=== PATIENT | female | born 1975 | race Caucasian/White ===

== ENCOUNTER 2019-06-09 06:12 | Emergency (ER) | payer OTHER ==
[~2019-06-09] VITALS: Ht 160 cm; Wt 88.6 kg
[2019-06-09 06:17] VITALS: BP 152/89
== END 2019-06-09 07:34 | disposition home or self-care (01) ==
LOC: ED 06:12
DX: H16.002 Unspecified corneal ulcer, left eye (principal)

== ENCOUNTER 2020-05-06 04:26 | Inpatient (IN) | payer OTHER, SELFPAY ==
[~2020-05-06] VITALS: Ht 162.6 cm; Wt 86.2 kg
[2020-05-06 04:28] VITALS: Ht 162.6 cm; Wt 86.2 kg
--- NOTE | 2020-05-06 06:00 | NUR ---
PT SOB X4 DAYS AGO, TESTED COVID + 04/28/20. PT AFEBRILE, DENIES ANY PAIN OR OTHER COVID SYMPTOMS. LUNG SOUND CLEAR IN UPPER LOBES AND DIMINISHED IN EDWIGE. BASES ON AUSCULTATION. PT REPORTS DRY COUGH X4 DAYS. PT SATTING 90% ON RA, NAD NOTED ATT. PT A0X4, CURRENTLY ON GURNEY, SIDERAILS X2, CALL LIGHT WITHIN REACH. WILL CONTINUE TO MONITOR.
--- NOTE | 2020-05-06 06:15 | NUR ---
LAB DRAW COMPLETED AND SENT TO LAB
--- NOTE | 2020-05-06 07:19 | NUR ---
RECEIVED REPORT FROM NEDRA OLIVER WILL RESUME CARE OF PT
[2020-05-06 07:23] LABS: BASOPHIL % 0.5 % (0.2-1.3)
[2020-05-06 07:41] LABS: ALBUMIN 3.2 g/dL (3.4-5.0); ALKALINE PHOSPHATASE 104 U/L (46-116); ALT/SGPT 44 U/L (14-59); AST/SGOT 19 U/L (15-37); C REACTIVE PROTEIN 8.7 mg/dL (<=0.9); CALCIUM 9.2 mg/dL (8.5-10.1); CARBON DIOXIDE 26.6 mmol/L (21-32); CHLORIDE SERUM 96 mmol/L (98-107); CREATININE SERUM 0.7 mg/dL (0.6-1.0); GFR1 > 60 mL/min; GLUCOSE SERUM 223 mg/dL (74-106); LACTIC DEHYDROGENASE (LDH) 198 U/L (100-190); POTASSIUM SERUM 3.3 mmol/L (3.5-5.1); SODIUM SERUM 134 mmol/L (136-145); TOTAL PROTEIN, SERUM 8.4 g/dL (6.4-8.2)
[2020-05-06 07:43] LABS: PLATELET COUNT 426 x10^3mcL (179-408); RED CELL DISTRIBUTION WIDTH 16.3 % (12.3-17.7)
[2020-05-06 08:05] LABS: UA SPECIFIC GRAVITY >=1.030 (1.005-1.035); microscopic required? YES; urine erythrocyte NEGATIVE (NEGATIVE)
--- NOTE | 2020-05-06 09:44 | NUR ---
PT SITTING UP IN BED, FINISHED BREAKFAST, NO ACUTE RESPIRATORY DISTRESS NOTED. A&OX4, PENDING BED ASSIGNMENT, VSS STABLE, SAFETY PRECAUTIONS IN PLACE, CALL LIGHT WITHIN REACH, WILL CONTINUE TO MONITOR.
--- NOTE | 2020-05-06 09:45 | NUR ---
MEDICATED PER MD ORDER, PT TOLERATED WELL, SEE EMAR
--- NOTE | 2020-05-06 10:23 | NUR ---
RUEL OLIVER GAVE REPORT TO ANA MARIA OLIVER
[2020-05-06 10:55] LABS: MAGNESIUM 2.1 mg/dL (1.8-2.4); PHOSPHOROUS 2.4 mg/dL (2.5-4.9)
[2020-05-06 11:07] LABS: IRON 21 ug/dL (50-170)
--- NOTE | 2020-05-06 11:07 | NUR ---
RECIEVED PATIENT FROM ED VIA GURNEY. A/O X 4. VSS. AFEBRILE. RESPIRATIONS EVEN AND UNLABORED. NO SOB NOTED ON O2 AT 2L VIA NC WITH O2 SAT OF 95%. IV ANTIBIOTICS INFUSING WITH NO REDNESS OR IRRITATION TO SITE. DENIES PAIN OR ANY DISTRESS AT THIS TIME. ORIENTED TO ROOM AND CALL LIGHT SYSTEM. WILL CONTINUE TO MONITOR FOR SAFETY. Mallorie SPICER RN.
[2020-05-06 11:41] VITALS: BP 152/80
[2020-05-06 11:52] LABS: TOTAL IRON BINDING CAPACITY 388 ug/dL (250-450)
[2020-05-06 17:11] VITALS: BP 145/64
--- NOTE | 2020-05-06 18:17 | NUR ---
PATEINT REMAINS IN STABLE CONDITION. NO ACUTE DISTRESS NOTED AT THIS TIME. WILL ENDORSE TO QUALITY REVIEW TRAINER NURSE. Mallorie SPICER RN.
--- NOTE | 2020-05-06 18:18 | NUR ---
REMIANS IN STABLE CONDTION. NO ACUTE DISTRESS NOTED. WILL ENDORSE TO GROOVER RUNNER NURSE. Mallorie SPICER RN.
[2020-05-06 20:49] VITALS: BP 140/63
--- NOTE | 2020-05-06 22:28 | NUR ---
PT ALERT AND ORIENTED X4, TOLERATES MEDS WELL, NO C/O PAIN, NO SIGNS OF DISTRESS NOTED, CONTINUES ON NC AT 2L, SAT 96%, PT STARTED ON REMDESEVIR, TOLERATING WELL, PT AMBULATES INDEPENDENTALY, GAIT STEADY, SKIN WARM DRY AND INTACT, IV IN RIGHT AC, INTACT AND PATENT, BOWEL SOUNDS ACTIVE IN ALL 4 QUADS, LUNG SOUNDS DIMINISHED, CONTINUES NSR ON TELE, SAFETY MAINTAINED, WILL CONTINUE TO OBSERVE.
--- NOTE | 2020-05-07 02:33 | NUR ---
PT ALERT, NO SIGNS OF DISTRESS NOTED, REMAINS STABLE, SAFETY MAINTAINED, WILL CONTINUE TO OBSERVE.
--- NOTE | 2020-05-07 05:15 | NUR ---
PT UNEVENTFUL THIS SHIFT, NO C/O PAIN NOTED, REMAINS STABLE, WILL CONTINUE TO OBSERVE.
[2020-05-07 06:03] VITALS: BP 134/63
[2020-05-07 06:34] LABS: RED BLOOD CELLS 4.28 M/mm3 (4.10-5.10)
[2020-05-07 07:15] LABS: BASOPHIL % 0.2 % (0.2-1.3); PLATELET COUNT 394 x10^3mcL (179-408)
[2020-05-07 07:34] LABS: RED CELL DISTRIBUTION WIDTH 16.3 % (12.3-17.7)
[2020-05-07 08:02] LABS: ALKALINE PHOSPHATASE 81 U/L (46-116); ALT/SGPT 28 U/L (14-59); AST/SGOT 15 U/L (15-37); BILIRUBIN DIRECT 0.08 mg/dL (0.0-0.2); BILIRUBIN TOTAL 0.3 mg/dL (0.20-1.00); CALCIUM 8.5 mg/dL (8.5-10.1); CARBON DIOXIDE 28.3 mmol/L (21-32); CHLORIDE SERUM 97 mmol/L (98-107); CREATININE SERUM 0.7 mg/dL (0.6-1.0); GFR1 > 60 mL/min; GLUCOSE SERUM 155 mg/dL (74-106); POTASSIUM SERUM 3.8 mmol/L (3.5-5.1); SODIUM SERUM 133 mmol/L (136-145); TOTAL PROTEIN, SERUM 7.1 g/dL (6.4-8.2)
[2020-05-07 08:03] LABS: ALBUMIN 2.6 g/dL (3.4-5.0)
--- NOTE | 2020-05-07 08:15 | NUR ---
RECIEVED PATIENT AWAKE IN BED WATCHING TV. VSS. AFEBRILE. RESPIRATIONS EVEN AND UNLABORED. NO SOB NOTED. ON O2 AT 3L VIA NC WITH O2 SAT OF 95%. DENIES PAIN OR DISCOMFORT AT THIS TIME. NO ACUTE DISTRESS NOTED. WILL CONTINUE TO MONITOR FOR SAFETY. Mallorie SPICER RN.
[2020-05-07 08:32] VITALS: BP 129/75
[2020-05-07 12:37] VITALS: BP 125/69
[2020-05-07 16:40] VITALS: BP 120/57
--- NOTE | 2020-05-07 18:22 | NUR ---
PATIENT REMAINS IN STABLE CONDITION. NO ACUTE DISTRESS NOTED. WILL ENDORSE TO ROTARY CUTTER OPERATOR NURSE. Mallorie SPICER RN.
--- NOTE | 2020-05-07 19:05 | NUR ---
[facility] HERE TO PICK PATIENT UP FOR TRANSFER TO [facility]. REPORT CALLED TO MELODY JALLOH. Mallorie SPICER RN.
--- NOTE | 2020-05-07 19:20 | NUR ---
RECEIVED PT FROM DAY SHIFT RN. RN STATED THAT PT WAS TO BE TRANSFER TO [facility], WAITING FOR [facility] TO ARRIVE AND FOR DISCHARGE ORDER. PT A/OX4. ABLE TO MAKE NEEDS KNOWN. SPEECH CLEAR. ON TELE#54 READING NSR, PT DENIES CHEST PAIN OR PRESSURE. PULSES PALPABLE. NO EDEMA NOTED. ON LOVENOX PROPHYLAXIS. LUNG SOUND DIMINISHED ON 2L NC SATURATION 93%, NO SIGNS OF RESP DISTRESS NOTED. BOWEL SOUNDS ACTIVE. LAST BM ON 05/04/20, FORMED. VOIDS FREELY. AMBULATORY. SKIN INTACT. NO C/O PAIN OR DISCOMFORT AT THIS TIME. IV TO RAC, SALINE LOCKED PATENT AND INTACT. EDUCATED PT REGARDING TRANSFERING TO NEW FACILITY. DAY SHIFT RN PROVIDED REPORT TO RN AT [facility]. ON DROPLET/CONTACT PRECAUTIONS FOR COVID. CALL LIGHT WITHIN REACH. VITAL SIGNS ARE TEMP 98.0, HR 75, RR 20, BP 120/57 (78) O2 93 ON 2L NC. WAITING FOR DISCHARGE.
--- NOTE | 2020-05-07 19:27 | NUR ---
MAXIMILIAN FARRIS. WAITING FOR CALL BACK.
--- NOTE | 2020-05-07 19:36 | NUR ---
SPOKE WITH DR. MORALES REGARDING TRANSFER ORDER. DOCTOR STATED HE WILL CLARIFY WITH ANOTHER DOCTOR AND GIVE ME A CALL BACK WITHIN 5 MIN. WAITING FOR CALL BACK.
--- NOTE | 2020-05-07 19:46 | NUR ---
CHARGE NURSE JOANNA SPOKE WITH DR. DAMIAN REGARDING TRANSFER ORDERS. DOCTOR INFORMED CHARGE NURSE THAT HE IS UNABLE TO PROVIDE ORDER AT THIS TIME. PAGED DR. WEEKS REGARDING NEW ORDERS. DOCTOR STATED THAT SHE WOULD INPUT DISCHARGE ORDER FOR TRANSFER TO NEW FACILITY.
--- NOTE | 2020-05-07 19:57 | NUR ---
SPOKE WITH [facility] REGARDING [facility] TRANSFER. THEY STATED THEY WILL SEND [facility] BACK.
[2020-05-07 20:17] VITALS: BP 120/57
[2020-05-07 20:29] VITALS: BP 121/43
--- NOTE | 2020-05-07 21:00 | NUR ---
[facility] ARRIVED, REPORT GIVEN. ALL BELONGINGS WITH PATIENT. VITAL SIGNS WNL. 2100 MEDICATION PROVIDED. ALL NEEDS/CONCERNS ADDRESSED AT THIS TIME. TELE MONITOR REMOVED. IV TO RAC, SALINE LOCKED. PT A/OX4, STABLE FOR TRANSPORT. PT TO BE DISCHARGED AT THIS TIME.
== END 2020-05-07 21:06 | disposition short-term general hospital (02) | DRG 871 ==
LOC: ED 04:26 → DU 05:36
PROVIDERS: Emergency Medicine; Internal Medicine; ADMIT Family Medicine; ATTEND Family Medicine
DX: A41.89 Other specified sepsis (principal); U07.1 COVID-19; J12.82 Pneumonia due to coronavirus disease 2019; J96.01 Acute respiratory failure with hypoxia; I10 Essential (primary) hypertension; Z83.3 Family history of diabetes mellitus; Z82.49 Family history of ischemic heart disease and other diseases of the circulatory system; D64.9 Anemia, unspecified; E11.65 Type 2 diabetes mellitus with hyperglycemia
CPT/HCPCS: 36600; 82962; 83880; 85378; 87804; G0378; J0456; J0696; J1100; J1650; J3535; J7040; J7050; J7060